=== PATIENT | female | born 1990 | race African-American/Black ===

== ENCOUNTER 2018-06-15 08:31 | Emergency (ER) | payer OTHER ==
[~2018-06-15] VITALS: Ht 149.9 cm; Wt 97.0 kg
[2018-06-15 10:44] LABS: BG BASE EXCESS -1.3 mmol/L (-2.0-2.0); BG CARBOXYHEMOGLOBIN 0.6 % (0.5-1.5); BG FRACTION INSPIRED OXYGEN 21; BG HCO3 ACT 22.5 mmol/L (22.0-26.0); BG METHEMOGLOBIN 0.1 % (0.0-1.5); BG OXYHEMOGLOBIN 97.3 % (94.0-97.0); BG PCO2 35.3 mmHg (35.0-45.0); BG PH 7.423 (7.350-7.450); BG PO2 102.3 mmHg (75.0-100.0); BG SAMPLE SITE LEFT RADIAL; BG TOTAL HEMOGLOBIN 14.5 g/dL (12.0-18.0); BG VENT MODE ROOM AIR
[2018-06-15 11:27] VITALS: BP 130/91
[2018-06-15] MEDS ORDERED: LIDOCAINE HCL/PF 1% 2ML VIAL ONE (14:39)
== END 2018-06-15 11:42 | disposition home or self-care (01) ==
LOC: ER 09:31
DX: Z77.098 Contact with and (suspected) exposure to other hazardous, chiefly nonmedicinal, chemicals (principal)
CPT/HCPCS: 36600; 82375; 82805; 99283; J3490; J7030